=== PATIENT | female | born 1960 | race Caucasian/White ===

== ENCOUNTER 2018-05-19 21:36 | Emergency (ER) | payer BC ==
[2018-05-19 21:52] VITALS: BP 161/87; PULSE 67; RESP 17; TEMP 98.6; O2SAT 96
--- NOTE | 2018-05-19 22:03 | C.PDOC ---
History Of Present Illness 57 year old female presents to ED with complains of lower back pain radiating down her right side after trip and fall at home earlier today. She stats she fell on tile floor and has pain since. Patient has history of herniated disk and pinched nerve. She took Advil with little relief. Denies any numbness, weakness, incontinence. - HPI Time Seen by Provider: 05/19/18 21:50 Chief Complaint (Nursing): Trauma History Per: Patient History/Exam Limitations: no limitations Onset/Duration Of Symptoms: Hrs Location Of Injury: Posterior: Back (pain) Past Medical History Reviewed: Historical Data, Nursing Documentation, Vital Signs Vital Signs: Last Vital Signs Temp 98.6 F 05/19/18 21:37 Pulse 67 05/19/18 21:37 Resp 17 05/19/18 21:37 BP 161/87 H 05/19/18 21:37 Pulse Ox 96 05/19/18 21:37 - Medical History PMH: Arthritis, Back Problems, Diverticulitis, Gastritis, Hypercholesterolemia Family History: States: Unknown Family Hx, Hypertension - Social History Hx Tobacco Use: No Hx Alcohol Use: No Hx Substance Use: No - Immunization History Hx Tetanus Toxoid Vaccination: No Hx Influenza Vaccination: No Hx Pneumococcal Vaccination: No Review Of Systems Except As Marked, All Systems Reviewed And Found Negative. Musculoskeletal: Positive for: Back Pain Physical Exam - Physical Exam Appears: Non-toxic, No Acute Distress Skin: Warm, Dry, No Rash, No Ecchymosis Head: Atraumatic, Normacephalic Eye(s): bilateral: Normal Inspection Neck: Normal ROM Chest: Symmetrical Cardiovascular: Rhythm Regular, No Murmur Respiratory: No Wheezing Back: Normal Inspection, No Vertebral Tenderness, Paraspinal Tenderness (diffuse to lumbar region ), No Straight Leg Raising Extremity: Bilateral: Atraumatic, Normal ROM Neurological/Psych: Oriented x3, Normal Speech ED Course And Treatment O2 Sat by Pulse Oximetry: 96 Medical Decision Making Medical Decision Making: Impression: back pain s.p fall Plan: * LS spine xray * Toradol, Valium Progress: On re-eval, the patient was resting on stretcher in no distress and reported back pain mildly improved. She was ambulatory without signs of discomfort. Disposition Counseled Patient/Family Regarding: Diagnosis, Need For Followup, Rx Given - Disposition Referrals: Shaik Jose MD [Staff Provider] - Disposition: HOME/ ROUTINE Disposition Time: 22:49 Condition: GOOD Additional Instructions: Portis analgsicos segn sea necesario. Motrin cada 6-8 horas con la comida. Flexeril es un relajante muscular y puede causar somnolencia. Prescriptions: Cyclobenzaprine [Cyclobenzaprine HCl] 10 mg PO TID #30 tab Ibuprofen [Motrin] 600 mg PO Q8 #30 tab Instructions: Low Back Pain (DC) Print Language: YAKUT - POA Present On Arrival: Falls Or Trauma - Clinical Impression Clinical Impression: Back pain, Contusion
--- NOTE | 2018-05-20 16:17 | RAD ---
Date of service: 05/19/2018 PROCEDURE: Radiographs of the Lumbar Spine. HISTORY: pain s.p fall COMPARISON: No prior. FINDINGS: BONES: Normal alignment. No listhesis. No fracture. DISC SPACES: Unremarkable. OTHER FINDINGS: None. IMPRESSION: Unremarkable radiographs of the lumbar spine.
== END 2018-05-19 23:00 | disposition home or self-care (01) ==
LOC: C.ER 21:36
DX: S30.0XXA Contusion of lower back and pelvis, initial encounter (principal); W01.0XXA Fall on same level from slipping, tripping and stumbling without subsequent striking against object, initial encounter; M54.5 Low back pain
CPT/HCPCS: 72100; 96372; 99284; J1885